=== PATIENT | female | born 1990 | race Hispanic/Latino ===

== ENCOUNTER 2020-08-02 10:19 | Inpatient (IN) | payer MEDICAID ==
[~2020-08-02] VITALS: Ht 149.9 cm; Wt 81.2 kg
[~2020-08-02 10:19] MED LIST: DOCU240C80 PO; LIDOP TP; TYL3 PO
[2020-08-09] VITALS (18 sets, daily range): BP systolic 102–125; BP diastolic 55–84
[2020-08-09] MEDS ORDERED: CEFAZOLIN SODIUM 1 GM VIAL IVP PRN (05:30)
[2020-08-09 05:56] LABS: HEMATOCRIT 35.5 % (36-48); MEAN CORPUSCULAR HEMOGLOBIN 28.6 pg (27.0-33.0); MEAN CORPUSCULAR HGB CONC 32.4 g/dL (32.0-36.0); MEAN CORPUSCULAR VOLUME 88.3 fL (79-99); NUCLEATED RED BLOOD CELLS 0.2 % (0.0-0.19); RED BLOOD CELL COUNT(AUTO) 4.02 MIL/uL (4.00-5.50); RED CELL DISTRIBUTION WIDTH 14.3 % (11.0-15.5); WHITE BLOOD COUNT (AUTO) 9.6 K/uL (4.8-10.8)
[2020-08-09] MEDS: LACTATED RINGERS 1000ML 1,000 ML IV SCH ×2 (07:50→21:30)
[2020-08-09] MEDS ORDERED: CEFAZOLIN SODIUM 1 GM VIAL IVP ONE (08:43)
[2020-08-09] MEDS ORDERED: OXYTOCIN 10 USP UNITS/ML ONE (08:52)
[2020-08-09] MEDS ORDERED: OXYTOCIN-LR 20 UNITS/1000 ML 1,000 ML IV PRN (09:45)
[2020-08-09] MEDS ORDERED: SODIUM CHLORIDE 0.9% 10 ML VIAL IVP PRN (09:45)
[2020-08-09] MEDS ORDERED: ACETAMINOPHEN EXTRA STRENGTH 500 MG TABLET PO PRN (09:45)
[2020-08-09] MEDS ORDERED: MEPERIDINE-PF 75 MG/ML SYG IM PRN (09:45)
[2020-08-09] MEDS ORDERED: LANOLIN 30GM OINTMENT TP PRN (09:45)
[2020-08-09] MEDS ORDERED: PROMETHAZINE HCL 25 MG/ML 1ML AMPULE IM PRN (09:45)
[2020-08-09] MEDS ORDERED: SIMETHICONE 80 MG TAB.CHEW PO PRN (09:45)
[2020-08-09] MEDS ORDERED: BISACODYL 10 MG SUPP.RECT RC PRN (09:45)
[2020-08-09] MEDS ORDERED: DEXTROSE 5 %-0.45 % NACL 1,000 ML IV PRN (09:45)
[2020-08-09] MEDS ORDERED: DIPHENHYDRAMINE HCL 25 MG CAPSULE PO PRN (09:45)
[2020-08-09] MEDS ORDERED: HYDROCODONE/ACETAMINOPHEN 5/325 MG TAB PO PRN (09:45)
[2020-08-09] MEDS ORDERED: ACETAMINOPHEN-CODEINE 300/30MG TAB PO PRN (09:45)
[2020-08-09] MEDS: MEASLES/MUMPS/RUBELLA VACCINE, LIVE 0.5 ML/VIAL SQ SCH (10:40)
--- NOTE | 2020-08-09 10:40 | NUR ---
REPORT RECEIVED FROM DINH ROLL FORMER AND PATIENT CARE TRANSFERED AT THIS TIME.
[2020-08-09] MEDS: DIPH,PERTUSS(ACELL),TET VAC/PF 0.5 ML VIAL IM SCH (10:45)
--- NOTE | 2020-08-09 10:50 | NUR ---
PATIENT ASSESSED UPON TRANSFER AND UPON ASSESSING UTERUS, PATIENT PASSED A MODERATE SIZE CLOT FOR QBL OF 131. INFORMED PATIENT SHE WOULD BE ASSESSED FOR BLEEDING AND BE MONITORED. #2 IV BAG OF PITOCIN HUNG ON ADMISSION TO ROOM. INSTRUCTED PATIENT ON USE OF IS AND NEED TO USE WHILE AWAKE X 10 TIMES. VERBALIZED UNDERSTANDING. PATIENT DENIES ANY PAIN AND NO MORE BLEEDING NOTED. FUNDUS IS FIRM.
--- NOTE | 2020-08-09 12:45 | NUR ---
PATIENT CHECKED AND HAD SMALL PAD SOAKED. CALLED DR. FLOWER AND ORDER WAS RECEIVED FOR METHERGINE 0.2 IM ONCE AND METHERGINE 0.2 PO Q6H X 4 DOSES.
[2020-08-09] MEDS ORDERED: METHYLERGONOVINE MALEATE 0.2 MG/1 ML ML ONE (13:05)
[2020-08-09] MEDS: METHYLERGONOVINE MALEATE 0.2 MG/1 ML ML IM SCH (13:11)
[2020-08-09] MEDS ORDERED: PNV#1COM14 PO (17:07)
[2020-08-09] MEDS ORDERED: FLU VACC QS2020-21(6MOS UP)/PF 60 MCG/0.5 ML ML IM ONE (17:15)
[2020-08-09] MEDS: DOCUSATE SODIUM 100 MG CAP PO SCH (21:02)
[2020-08-10] MEDS: LACTATED RINGERS 1000ML 1,000 ML IV SCH (01:01)
[2020-08-10] MEDS: DIPH,PERTUSS(ACELL),TET VAC/PF 0.5 ML VIAL IM SCH (01:51)
[2020-08-10] MEDS: METHYLERGONOVINE MALEATE 0.2 MG/1 ML ML IM SCH (01:52)
[2020-08-10] MEDS: MEASLES/MUMPS/RUBELLA VACCINE, LIVE 0.5 ML/VIAL SQ SCH (01:52)
[2020-08-10 03:30] VITALS: BP 117/76
--- NOTE | 2020-08-10 04:03 | NUR ---
MEDICATED WITH BENADRYL P.O FOR C/O ITCHING; NO REDNESS OR RASHES NOTED.
--- NOTE | 2020-08-10 05:00 | NUR ---
PT. DROWSY, DENIED FURTHER C/O ITCHING.
--- NOTE | 2020-08-10 06:50 | NUR ---
NAOMI HERMAN, BREONNA CARE DONE AND PT SAT UP IN CHAIR WITH ASSIST. INST TO CALL FOR ASSIST BEFORE GETTING UP TO BR, VERBALIZED UNDERSTANDING. Addendum: 08/10/20 at 0742 by CARO DAVIS RN RN Amended: Links added.
[2020-08-10 07:33] VITALS: BP 108/70
--- NOTE | 2020-08-10 08:00 | NUR ---
PATIENT ASSESSED AT THIS TIME AND STATES HAVING HAD SOME NAUSEA EARLY THIS A.M. WITH A SMALL EMESIS. OFFERED PATIENT ZOFRAN FOR NAUSEA SINCE HER GOURMET MEAL WAS BROUGHT IN AND AGREED TO HAVE MEDICATION PRIOR TO EATING.
[2020-08-10] MEDS: DOCUSATE SODIUM 100 MG CAP PO SCH (08:19)
[2020-08-10] MEDS ORDERED: ONDANSETRON HCL 4 MG/2 ML VIAL ONE (08:33)
[2020-08-10] MEDS ORDERED: ONDANSETRON HCL 4 MG/2 ML VIAL IVP PRN (08:45)
[2020-08-10] MEDS ORDERED: EPHEDRINE SULFATE 50 MG/ML AMPULE IVP PRN (08:45)
[2020-08-10] MEDS ORDERED: NALOXONE HCL 0.4 MG/1 ML ML IVP PRN (08:45)
[2020-08-10] MEDS ORDERED: DiphenhydrAMINE HCL 50 MG/ML VIAL IVP PRN (08:45)
[2020-08-10] MEDS ORDERED: LIDOCAINE 5% TOPICAL PATCH TP SCH (09:00)
[2020-08-10 09:14] LABS: HEPATITIS Bs ANTIGEN SCREEN P Negative (Negative)
--- NOTE | 2020-08-10 10:00 | NUR ---
Trigger for HX of Anxiety SW met with pt. who is calm, cooperative and smiles when she greets this worker. Pt. reports that this is her second delivery; other child is 5y and reportedly current with immunizations. Pt. is not employed outside the home and resides with spouse Tyrese who is at bedside and is employed with [employer]. Pt. denied any history of PPD with first delivery and verbalized an awareness/understanding of PPD and to seek assistance if needed. Pt. reported a history of anxiety "sometimes", stating that she does not follow under any mental health professional, instead utilizes relaxation and breathing techniques when needed. SW provided information on free counseling under [employer] system utilizing tele-help at this time; pt. provided with brochure/contact information if needed. Pt. denied any use of illicit substances, etoh or tobacco. All utilities reportedly connected in the home and family has own transportation. Benefits in place include Medicaid, WIC and SNAP. Pt. reported a strong support system among family. Spouse reported that he is off until November under family leave and will assist with care of and 5y. Pt. verbalized no SS needs or concerns. Pt. and to be discharged home when medically cleared. Addendum: 08/10/20 at 1035 by MILAGRO NORRIS Amended: Links added.
[2020-08-10 11:42] VITALS: BP 95/63
--- NOTE | 2020-08-10 12:30 | NUR ---
PIV REMOVED AND SITE IS WNL. PATIENT WAS ABLE TO TAKE SHOWER, TOLERATED ACTIVITY WELL.
--- NOTE | 2020-08-10 13:40 | NUR ---
PATIENT WAS TAKEN VIA W/C CARRYING BABY IN ARMS TO FAMILY VEHICLE AND WAS DISCHARGED TO HER SPOUSE IN STABLE CONDITION. PATIENT DENIES PAIN AND TOLERATING ACTIVITY WELL. STATES HAVING HAD TWO BMS AFTER DULCOLAX SUPPOSITORY.
== END 2020-08-10 13:40 | disposition home or self-care (01) | DRG 540 ==
LOC: LDH 10:19 → UNDOADMIN 10:19 → LDH 08-09 05:18 → WSH 08-09 10:40
PROVIDERS: ADMIT Obstetrics & Gynecology; ATTEND Obstetrics & Gynecology
PROC: 3E02340 Introduction of Influenza Vaccine into Muscle, Percutaneous Approach (ICD-10-PCS; 2020-08-09)
PROC: 10D00Z1 Extraction of Products of Conception, Low, Open Approach (ICD-10-PCS; principal; 2020-08-09 08:30)
PROC: 3E0234Z Introduction of Serum, Toxoid and Vaccine into Muscle, Percutaneous Approach (ICD-10-PCS; 2020-08-10)
PROC: 3E0134Z Introduction of Serum, Toxoid and Vaccine into Subcutaneous Tissue, Percutaneous Approach (ICD-10-PCS; 2020-08-10)
DX: O34.211 Maternal care for low transverse scar from previous cesarean delivery (principal); N73.6 Female pelvic peritoneal adhesions (postinfective); G40.909 Epilepsy, unspecified, not intractable, without status epilepticus; Z20.828 Contact with and (suspected) exposure to other viral communicable diseases; O69.81X0 Labor and delivery complicated by cord around neck, without compression, not applicable or unspecified; Z3A.39 39 weeks gestation of pregnancy; Z37.0 Single live birth; O99.354 Diseases of the nervous system complicating childbirth; Z23 Encounter for immunization; O99.89 Other specified diseases and conditions complicating pregnancy, childbirth and the puerperium
CPT/HCPCS: 36415; 59510; 85027; 86592; 86850; 86900; 86901; 87340; A4344; G0008; G0378; J0690; J2210; J2405; J2590; J7120; Q0163; Q2035; U0003